=== PATIENT | female | born 1990 | race Caucasian/White ===

== ENCOUNTER 2018-09-09 04:58 | Day surgery (SDC) | payer OTHER ==
[2018-09-03 17:00] VITALS: BMI 25.2
[2018-09-09] MEDS ORDERED: PROPOFOL 20 ML ONE ×4 (12:09→13:38)
[2018-09-09] MEDS ORDERED: MIDAZOLAM HCL 2 MG/2 ML SINGLE DOSE VIAL ONE (12:09)
[2018-09-09] MEDS ORDERED: ONDANSETRON 4 MG/2 ML VIAL IVPUSH PRN (12:35)
[2018-09-09] MEDS ORDERED: oxyCODONE HCL 5 MG TABLET PO PRN ×2 (12:35)
[2018-09-09] MEDS ORDERED: LACTATED RINGERS SOLUTION 1,000 ML IV SCH (12:45)
[2018-09-09] MEDS ORDERED: IBUPROFEN 400 MG TABLET (FP) PO PRN (12:58)
[2018-09-09] MEDS ORDERED: ACETAMINOPHEN 325 MG TABLET (FP) PO PRN (12:58)
--- NOTE | 2018-09-09 13:00 | HP ---
Admitting History and Physical - Admission History of Present Illness: 28 yo with KALEIGH 2/3 for LEEP 2016 - LSIL --> Colpo KALEIGH 1 2017 - ASCUS, HPV + --> Colpo KALEIGH 1 2018 - normal pap, HPV + --> colpo KALEIGH 2/3 History Source: Patient Limitations to Obtaining History: No Limitations - Past Medical History Cardiovascular: No: HTN Pulmonary: No: Asthma Gastrointestinal: No: GERD ...LMP: 08/23/18 ...: No Heme/Onc: No: Anemia - Past Surgical History Past Surgical History: Yes: None - Smoking History Smoking history: Never smoked Aproximately how many cigarettes per day: 0 - Alcohol/Substance Use Hx Alcohol Use: Yes (OCCASIONAL) History of Substance Use: reports: None - Social History Usual Living Arrangement: Yes: With Spouse History of Recent Travel: No Home Medications - Allergies Allergies/Adverse Reactions: Allergies Allergy/AdvReac Type Severity Reaction Status Date / Time No Known Allergies Allergy Verified 11/11/12 22:08 - Home Medications Home Medications: Ambulatory Orders Ibuprofen [Motrin] 600 mg PO PRN 09/03/18 Norethindrone-E.estradiol-Iron [Blisovi 24 Fe Tablet] 1 each PO DAILY 09/03/18 Family Disease History - Family Disease History Family History: Denies Review of Systems - Review of Systems Constitutional: reports: No Symptoms HENT: reports: No Symptoms Neck: reports: No Symptoms Cardiovascular: reports: No Symptoms Respiratory: reports: No Symptoms Gastrointestinal: reports: No Symptoms Genitourinary: reports: No Symptoms Endocrine: reports: No Symptoms Hematology/Lymphatic: reports: No Symptoms Psychiatric: reports: No Symptoms Physical Examination Vital Signs: Vital Signs Temperature 98.2 F 09/09/18 11:43 Pulse Rate 79 09/09/18 11:43 Respiratory Rate 16 09/09/18 11:43 Blood Pressure 112/67 09/09/18 11:43 O2 Sat by Pulse Oximetry (%) 98 09/09/18 11:47 Constitutional: Yes: Well Nourished, No Distress, Calm Cardiovascular: Yes: Regular Rate and Rhythm Respiratory: Yes: Regular, CTA Bilaterally Gastrointestinal: Yes: Normal Bowel Sounds, Soft Extremities: Yes: WNL Edema: No Neurological: Yes: Alert, Oriented Psychiatric: Yes: Alert, Oriented Assessment/Plan 28 yo with KALEIGH 2/3 on recent colposcopic directed biopsies for colposcopy, LEEP 1. Consents reviewed and signed 2. No antibiotics indicated 3. SCDs for DVT Prophyulaxis 4. Will proceed to OR
[2018-09-09] MEDS ORDERED: IODINE/POTASSIUM IODIDE 5%/10% 14 ML BOTTLE NR ONE (13:21)
[2018-09-09] MEDS ORDERED: FERRIC SUBSULFATE 500 ML BOTTLE TP ONE (13:30)
--- NOTE | 2018-09-09 14:02 | OP ---
Operative Note - Note: Operative Date: 09/09/18 Pre-Operative Diagnosis: KALEIGH 2 / 3 Operation: Loop Electrosurgical Excisional Procedure, Endocervical Curetting, Colposcopy Findings: Lesion encompassing entire transformation zone Post-Operative Diagnosis: Same as Pre-op Surgeon: Mariana Bobo Anesthesiologist/SHOPPING INVESTIGATOR: Deon Headley Anesthesia: MAC Specimens Removed: 1. LEEP Biopsy; 2. additional biospy at 1 o'clock; 3. ECC Estimated Blood Loss (mls): 2 Fluid Volume Replaced (mls): 600 Operative Report Dictated: Yes
[2018-09-09 14:46] VITALS: TEMP 97.8
[2018-09-09 16:40] VITALS: BP 117/74; PULSE 70
--- NOTE | 2018-09-09 16:40 | OP ---
DATE OF OPERATION: 09/09/2018 ATTENDING PHYSICIAN RESPONSIBLE FOR SIGNING REPORT: Mariana Bobo M.D. 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 SURGEON: Mariana Bobo M.D. ANESTHESIOLOGIST: Deon Headley M.D. FLUIDS GIVEN: 600 mL. ESTIMATED BLOOD LOSS: 2 mL. INDICATIONS: The patient is a 28-year-old with history of KALEIGH 2 and KALEIGH 3 on colposcopic-directed biopsies in the office for surgical management. She was counseled regarding the risks, benefits, alternatives and complications of the procedure, including infection, bleeding, and damage to surrounding organs. She expressed understanding and was brought to the operating room. DESCRIPTION OF PROCEDURE: When anesthesia was found to be adequate, the patient was placed in the dorsal supine position. A coated speculum was placed in the patient's vagina. Acetic acid 5% was placed on the patient's cervix and a lesion was noted that encompassed majority of the transformation zone. Lugol's solution was applied and the lesion's margins were identified. A 2 x 1-cm loop was used to excise the transformation zone in 1 piece. Additional Lugol's solution was placed on the remaining perimeter of the excisional site This noted to have poor uptake at 1 o'clock. Additional biopsy was performed at 1 o'clock. A rollerball was used to cauterize the cervical bed and edges. Endocervical curetting was performed, and that specimen was sent to Pathology. A piece of Surgicel was placed on the cervical bed. Good hemostasis was noted. All instruments were removed from the patient's vagina. The patient was awoken from anesthesia and brought to the recovery room in stable condition. Evelin [id number] MTDD
--- NOTE | 2018-09-15 13:04 | PATH ---
Cytology Non-Gynecological Report Patient Name: DANITA WASHBURN [facility]. Rec. #: [id number] /Age/Gender: 1990 (Age: 28) / F Account: [id number] Location: [facility] SURGICAL Taken: 09/09/2018 Received: 09/10/2018 Reported: 09/14/2018 Physicians: Mariana Bobo Specimen(s) Received CERVIX AND ENDOMETRIUM Clinical History History of KALEIGH 2/3 Final Diagnosis CERVIX AND ENDOMETRUM FOR CYTOLOGY: NEGATIVE FOR MALIGNANT CELLS. BENIGN ENDOCERVICAL CELLS AND TISSUE PRESENT. NO ENDOMETRIAL TISSUE PRESENT. Also see concurrent pathology report [id number]. Electronically Signed Alban Dawson M.D. Gross Description Tissue with brush received in 50% alcohol. Two slides and one cellblock prepared.
--- NOTE | 2018-09-15 17:53 | PATH ---
Surgical Pathology Report Patient Name: DANITA WASHBURN [facility]. Rec. #: [id number] /Age/Gender: 1990 (Age: 28) / F Account: [id number] Location: [facility] SURGICAL Taken: 09/09/2018 Received: 09/10/2018 Reported: 09/15/2018 Physicians: Mariana Bobo Specimen(s) Received A: CERVICAL LEEP BIOPSY B: CERVICAL LEEP BIOPSY Clinical History 28 year old with KALEIGH 2/3 on colposcopy directed biopsy in the office, history of KALEIGH 1 since 2015, 2017. KALEIGH 2/3 at 11 o'clock; KALEIGH 2 at 8 o'clock Final Diagnosis A. CERVICAL LEEP BIOPSY: CERVICAL TISSUE WITH KALEIGH 2 (CERVICAL INTRAEPITHELIAL NEOPLASIA GRADE 2), AT 12 -3 O'CLOCK QUADRANT. KALEIGH 1 IS ALSO IDENTIFIED. KALEIGH 1 FOCALLY PRESENT AT THE MARGIN. MARGINS ARE NEGATIVE FOR HIGH GRADE DYSPLASIA. MARKED ACTIVE CHRONIC CERVICITIS PRESENT. Comment: Immunohistochemical stains p16 and Ki67 (at block A4) performed at [facility] ([id number]) show staining patterns consistent with CIN1. Positive and negative controls (internal if applicable) show appropriate results. Interdepartmental case reviewed with consensus on diagnosis. B. CERVICAL LEEP BIOPSY AT 1 O'CLOCK: CERVICAL TISSUE WITH MOSTLY DENUDED EPITHELIUM. NEGATIVE FOR DYSPLASIA. Electronically Signed Alban Dawson M.D. Gross Description A. Received in formalin, labeled " cervical Leep biopsy, long suture at 12:00, short suture at 3:00", is a portion of circular mucosal tissue measuring 2.1 x 2 x 0.7 cm with a long suture at 12:00, a short suture at 3:00, as per the surgeon. The resection margin is inked blue. Separate soft tissue measuring 0.5 x 0.3 x 0.1cm in aggregate is also present. The specimen is serially sectioned and entirely submitted in 5 cassettes as following 1:12 - 3:00; 2: 3 - 6:00; 3: 6 - 9:00; 4: 9 -12:00; 5 separate soft tissue. B. Received in formalin, labeled "cervical Leep biopsy at 1:00", is a portion of soft tissue measuring 0.8 x 0.7 x 0.2 cm. The specimen is bisected and entirely submitted in one cassette. __ JUAN/09/10/2018 iban/09/10/2018
== END 2018-09-09 16:00 | disposition home or self-care (01) ==
LOC: JASU-SURG 04:58
PROVIDERS: ATTEND Obstetrics & Gynecology
PROC: 0UBC7ZX Excision of Cervix, Via Natural or Artificial Opening, Diagnostic (ICD-10-PCS; principal; 2018-09-09 13:00)
DX: D06.7 Carcinoma in situ of other parts of cervix (principal)
CPT/HCPCS: 84703; 88108; 88305-TC; 94760